=== PATIENT | female | born 1960 | race African-American/Black ===

== ENCOUNTER 2019-12-14 13:31 | Inpatient (IN) | payer SELFPAY ==
[~2019-12-14] VITALS: Ht 154.9 cm; Wt 65.8 kg
[2019-12-14] MEDS ORDERED: SODIUM CHLORIDE 0.9% 1000ML 1,000 ML IV STA (13:56)
[2019-12-14] MEDS ORDERED: ASPIRIN 81 MG CHEW TAB PO ONE ×2 (14:00→15:45)
[2019-12-14 14:33] LABS: BASOPHILS % 0.1 % (0.0-1.0); HEMOGLOBIN 13.4 g/dL (12.0-16.0); LYMPHOCYTES # (AUTO) 0.4 (1.0-3.2); LYMPHOCYTES % 3.3 % (18.0-39.1); MEAN CORPUSCULAR HEMOGLOBIN 29.1 pg (28-32); MEAN CORPUSCULAR HGB CONC 36.2 g/dL (31-35); MEAN CORPUSCULAR VOLUME 80.4 fL (81-99); MONOCYTES # (AUTO) 0.8 (0.2-0.8); NEUTROPHILS # (AUTO) 10.1 (2.1-6.9); NEUTROPHILS % 88.1 % (38.7-80.0); PLATELET COUNT 147 x10e3/uL (140-360); RED CELL DISTRIBUTION WIDTH 11.5 % (11.7-14.4)
[2019-12-14 14:43] LABS: INR 0.98; PROTHROMBIN TIME 13.6 seconds (11.9-14.5)
[2019-12-14 14:44] LABS: PARTIAL THROMBOPLASTIN TIME 24.6 seconds (23.8-35.5)
--- NOTE | 2019-12-14 14:57 | Diagnostic Imaging Report ---
EXAMINATION: CHEST SINGLE (NOT PORTABLE) INDICATION: Chest pain COMPARISON: None FINDINGS: AP view TUBES and LINES: None. LUNGS: Lungs are well inflated. Lungs are clear. There is no evidence of pneumonia or pulmonary edema. PLEURA: No pleural effusion or pneumothorax. HEART AND MEDIASTINUM: The cardiomediastinal silhouette is unremarkable. BONES AND SOFT TISSUES: No acute osseous lesion. Soft tissues are unremarkable. UPPER ABDOMEN: No free air under the diaphragm. IMPRESSION: No acute thoracic radiographic abnormality. Signed by: Gerardo Anthony MD on 12/14/2019 2:55 PM
[2019-12-14 15:05] LABS: ALANINE AMINOTRANSFERASE 115 IU/L (0-55); ALBUMIN 3.8 g/dL (3.5-5.0); ALKALINE PHOSPHATASE 43 IU/L (40-150); ANION GAP 22.8 mmol/L (8-16); BLOOD UREA NITROGEN 20 mg/dL (7-26); BUN/CREATININE RATIO 14 (6-25); CALCIUM 10.9 mg/dL (8.4-10.2); CARBON DIOXIDE 19 mmol/L (22-29); CHLORIDE 79 mmol/L (98-107); CREATININE, SERUM 1.38 mg/dL (0.57-1.11); EST GLOMERULAR FILTRATION RATE 47 ML/MIN (60-); GLUCOSE 103 mg/dL (74-118)
[2019-12-14 15:07] LABS: CREATINE KINASE 6045 IU/L (29-168); SALICYLATE < 5.0 mg/dL (0-30)
[2019-12-14 15:11] LABS: POTASSIUM 2.8 mmol/L (3.5-5.1); SODIUM 118 mmol/L (136-145)
--- NOTE | 2019-12-14 15:14 | NUR ---
Recieved call from lab for critical findings Na+: 118, K+:2.8, and CK: 6045. Results given to Dr. Grider and primary RN Sana.
[2019-12-14] MEDS ORDERED: POTASSIUM CHLORIDE 20 MEQ TAB CR PO STA (15:25)
[2019-12-14] MEDS ORDERED: KCL 20MEQ/.9 SOD CHL 1,000 ML IV ONE ×2 (15:30→18:15)
[2019-12-14] MEDS ORDERED: HEPARIN SOD (PORCINE) 5,000 UNIT/ML VIAL IV NR (17:00)
[2019-12-14] MEDS ORDERED: HEPARIN 25,000 UNIT DRIP IV ONE (17:53)
[2019-12-14] MEDS: METOPROLOL TARTRATE 25 MG TAB PO SCH (17:54)
[2019-12-14] MEDS: HEPARIN 25,000 UNIT 700 UNIT in DEXTROSE 5% 250ML 250 ML IV SCH (17:54)
[2019-12-14] MEDS ORDERED: ONDANSETRON HCL INJ 2MG/ML 2ML 2 MG/ML VIAL IV PRN (18:15)
[2019-12-14] MEDS ORDERED: NITROGLYCERIN 0.4 MG SUBL SL PRN (18:15)
--- OUTSIDE RECORDS SUMMARY | 2019-12-14 18:38 | XMS REPORT ---
Author Author [facility] Address Unknown Phone Unavailable Care Team Providers Care Commercial [employer] Associate Name Role Phone Razia WU Unavailable Unavailable Problems This patient has no known problems. Allergies, Adverse Reactions, Alerts This patient has no known allergies or adverse reactions. Medications This patient has no known medications. Encounters Start Date/Time End Date/Time Encounter Type Admission Type Attending [facility] Care Facility Care Department Encounter ID 2019-05-25 00:00:00 2019-05-25 00:00:00 Outpatient [facility] [id number] 2019-05-01 00:00:00 2019-05-01 00:00:00 Outpatient [facility] [id number] 2019-04-17 15:11:03 2019-04-17 15:11:03 Outpatient [facility] [id number] 2019-04-17 00:00:00 2019-04-17 00:00:00 Outpatient [facility] [id number] 2019-04-03 14:56:25 2019-04-03 14:56:25 Outpatient [facility] [id number] 2019-04-03 13:10:32 2019-04-03 13:10:32 Outpatient [facility] [id number] 2019-04-03 00:00:00 2019-04-03 00:00:00 Outpatient [facility] [id number] 2019-03-15 13:19:17 2019-03-15 13:19:17 Outpatient [facility] [id number] Results Test Description Test Time Test Comments Text Results Atomic Results Result Comments CHEST SINGLE (NOT PORTABLE) 2019-12-14 14:54:00 [place] [id number] Patient Name: JULIANA RASCON MR #: [id number] : 1960 Age/Sex: 59/F Req #: [id number] Adm Physician: Ordered by: LANEY MACK GRANITE SETTER Report #: [id number] Location: ER Room/Bed: Procedure: [id number] DX/CHEST SINGLE (NOT PORTABLE) Exam Date: 12/14/19 Exam Time: 1420 REPORT STATUS: Signed EXAMINATION: CHEST SINGLE (NOT PORTABLE) INDICATION: Chest pain COMPARISON: None FINDINGS: AP view TUBES and LINES: None. LUNGS: Lungs are well inflated. Lungs are clear. There is no evidence of pneumonia or pulmonary edema. PLEURA: No pleural effusion or pneumothorax. HEART AND MEDIASTINUM: The cardiomediastinal silhouette is unremarkable. BONES AND SOFT TISSUES: No acute osseous lesion. Soft tissues are unremarkable. UPPER ABDOMEN: No free air under the diaphragm. IMPRESSION: No acute thoracic radiographic abnormality. Signed by: James Desai MD on 12/14/2019 2:55 PM Dictated By: JAMES DESAI MD [id number] Transcribed By: SEGUNDO on 12/14/19 1958 COPY TO: LANEY MACK NP
[2019-12-14 19:03] LABS: ANION GAP 12.7 mmol/L (8-16); BLOOD UREA NITROGEN 19 mg/dL (7-26); BUN/CREATININE RATIO 19 (6-25); CALCIUM 10.2 mg/dL (8.4-10.2); CARBON DIOXIDE 24 mmol/L (22-29); CHLORIDE 87 mmol/L (98-107); CREATININE, SERUM 0.98 mg/dL (0.57-1.11); EST GLOMERULAR FILTRATION RATE > 60 ML/MIN (60-); GLUCOSE 82 mg/dL (74-118); POTASSIUM 3.7 mmol/L (3.5-5.1); SODIUM 120 mmol/L (136-145)
--- NOTE | 2019-12-14 19:38 | Diagnostic Imaging Report ---
EXAMINATION: Head CT without contrast. HISTORY:Altered mental status. COMPARISON:None. TECHNIQUE: Multidetector axial images were obtained from the foramen magnum to the vertex without contrast. The images were reconstructed using brain and bone algorithms. Thin section brain images were reformatted into coronal and sagittal planes. Dose modulation, iterative reconstruction, and/or weight based adjustment of the mA/kV was utilized to reduce the radiation dose to as low as reasonably achievable. Intravenous contrast: None IMAGE QUALITY: Suboptimal evaluation particularly at the level of skull base and posterior fossa structures due to streak artifacts. FINDINGS: Skull/scalp: No lytic or blastic. lesions. No surgical changes. Parenchyma: Nonspecific bilateral frontoparietal patchy white matter hypodensity are likely related to small vessel ischemic changes. Small, focal cortical-based hypodensity in the superior and dorsal aspect of right cerebellar hemisphere (image 13, series 2 and image 14, series 400) represents age indeterminate possible subacute vascular insult in right superior cerebellar artery territory. No acute hemorrhage or mass. Arteries: No density suggestive of thrombosis. Dural sinuses: No abnormal density suggestive of thrombosis. Ventricles: No hydrocephalus or displacement. Extra-axial spaces: No abnormal density. Brain volume: Normal for age. Craniocervical junction: No mass, Chiari malformation, or basilar invagination. Sella: No mass. Paranasal/mastoid sinuses: Imaged portions unremarkable. IMPRESSION: 1. Age indeterminate possible subacute vascular insult in right cerebellar hemisphere in superior cerebellar artery territory. 2. Mild supratentorial white matter microvascular ischemic changes. Signed by: Dr. Iliana Ortiz M.D. on 12/14/2019 7:36 PM
[2019-12-14] MEDS ORDERED: SODIUM CHLORIDE 0.9% 1000ML 1,000 ML IV SCH (19:45)
[2019-12-14 20:36] VITALS: BP 98/77
[2019-12-14] MEDS: ATORVASTATIN 40 MG TAB PO SCH (20:59)
[2019-12-14] MEDS: FAMOTIDINE 20 MG/2 ML VIAL IV SCH (20:59)
[2019-12-14] MEDS ORDERED: ATORVASTATIN 20 MG TAB PO SCH (21:00)
[2019-12-14 21:40] VITALS: BP 98/77
--- NOTE | 2019-12-14 22:16 | NUR ---
DR YAN CALLED AND GAVE ORDERS, BMP AT MIDNIGHT, ANOTHER BMP AT 6 AM TMRW AND CALL HER IF THE SODIUM LOWER THAN 122, ALSO CALL BMP RESULTS IN THE MORNING.
--- NOTE | 2019-12-14 22:35 | Consultation ---
DATE OF CONSULTATION: 12/14/2019 Cardiology Consultation REQUESTING PHYSICIAN: Tae Grider MD REASON FOR CONSULTATION: Elevated troponin. HISTORY OF PRESENT ILLNESS: This is a 59-year-old woman with history of hypertension, who presents with complaints of back pain. She denies any history of heart disease, but states she has been having back pain for the last couple days for which she presented to the ER. She denied any chest pain, shortness of breath, palpitations, lightheadedness, edema, orthopnea, or PND. On evaluation in the ER, she was found to have an elevated troponin for which Cardiology is consulted. Labs notable for leukocytosis of 11.48, hyponatremia of 118, hypokalemia of 2.8, elevated creatinine of 1.38 as well as elevated LFTs and cardiac biomarkers. REVIEW OF SYSTEMS: Negative except as per HPI. PAST MEDICAL HISTORY: Hypertension. PAST SURGICAL HISTORY: Denied. ALLERGIES: NO KNOWN DRUG ALLERGIES. MEDICATIONS: Please see medication list. SOCIAL HISTORY: She smokes a pack a day and has since the age of 15. She drinks a 6-pack of beer every day. No illicit drugs. FAMILY HISTORY: Denies family history of heart disease. PHYSICAL EXAMINATION: VITAL SIGNS: Temperature 98.7 degrees, pulse 87, respiratory rate 16, blood pressure 138/97, and oxygen saturation 97%. GENERAL: Well-developed, well-nourished woman, in no acute distress. HEENT: Normocephalic, atraumatic. Pupils are equal. No scleral icterus. NECK: Supple. No thyromegaly or cervical lymphadenopathy. No carotid bruits. LUNGS: Clear to auscultation bilaterally. No wheezes or crackles. CARDIOVASCULAR: Normal rate. Regular rhythm. No murmur. Normal S1, S2. ABDOMEN: Soft, nontender. EXTREMITIES: No edema. NEUROLOGIC: Nonfocal exam. SKIN: Dry and intact. LABORATORY DATA: Sodium 118, potassium 2.8, chloride 79, CO2 19, BUN 20, creatinine 1.38. AST 264, ALT 115. CK 6045, CK-MB 25.6, troponin 2.252. WBC 11.4, hemoglobin 13.4, hematocrit 37, platelets 147. EKG, sinus tachycardia, possible left atrial enlargement, septal infarct, age undetermined. IMPRESSION: 1. Elevated troponin. 2. Hyponatremia. 3. Hypokalemia. 4. Elevated liver function tests. 5. Leukocytosis. 6. Hypertension. RECOMMENDATIONS: Trend cardiac markers, agree with aspirin. We will start the patient on heparin drip. Obtain echocardiogram. Trend cardiac markers. Fasting lipid panel in a.m. Start the patient on metoprolol as well as atorvastatin. Monitor the patient on telemetry while admitted. Correct electrolyte abnormalities. Further evaluation of elevated LFTs per primary. Thank you for this consult. We will continue to follow. Nena Limon MD ABS/MODL /[id number]
[2019-12-14] MEDS ORDERED: POTASSIUM CHLORIDE 20 MEQ TAB CR PO ONE (23:00)
[2019-12-15] VITALS (9 sets, daily range): BP systolic 92–114; BP diastolic 78–94
--- NOTE | 2019-12-15 00:07 | NUR ---
DRAW BLOOD AND SENT TO LABS.
[2019-12-15 00:30] LABS: ANION GAP 17.8 mmol/L (8-16); BUN/CREATININE RATIO 34 (6-25); CALCIUM 10.3 mg/dL (8.4-10.2); CARBON DIOXIDE 17 mmol/L (22-29); CHLORIDE 91 mmol/L (98-107); CREATININE, SERUM 0.87 mg/dL (0.57-1.11); EST GLOMERULAR FILTRATION RATE > 60 ML/MIN (60-); GLUCOSE 71 mg/dL (74-118); POTASSIUM 3.8 mmol/L (3.5-5.1); SODIUM 122 mmol/L (136-145)
[2019-12-15 00:32] LABS: BLOOD UREA NITROGEN 30 mg/dL (7-26)
[2019-12-15 00:42] LABS: CREATINE KINASE MB 18.8 ng/mL (0-5.0)
--- NOTE | 2019-12-15 00:48 | NUR ---
CALLED AND SPOKE WITH DR YAN REGARDING LAB RESULT. THE MD ORDERED TO STOP THE NORMAL SALINE AND START 1/2 NS AT 70 CC/HR.
[2019-12-15] MEDS: SODIUM CHLORIDE 0.45% 1,000 ML IV SCH ×2 (00:59→16:29)
[2019-12-15] MEDS ORDERED: SODIUM CHLORIDE 0.45% 1,000 ML ONE (01:02)
--- NOTE | 2019-12-15 02:36 | NUR ---
SPOKE AND MADE DR Caden BAR AWARE, PT IS CONSULTED TO HIM.
[2019-12-15] MEDS: FAMOTIDINE 20 MG/2 ML VIAL IV SCH (06:06)
[2019-12-15 06:09] LABS: BASOPHILS % 0.2 % (0.0-1.0); EOSINOPHILS % 0.1 % (0.0-6.0); HEMATOCRIT 33.2 % (34.2-44.1); HEMOGLOBIN 11.6 g/dL (12.0-16.0); MEAN CORPUSCULAR HEMOGLOBIN 29.1 pg (28-32); MEAN CORPUSCULAR HGB CONC 34.9 g/dL (31-35); MEAN CORPUSCULAR VOLUME 83.4 fL (81-99); MONOCYTES # (AUTO) 1.2 (0.2-0.8); MONOCYTES % 11.7 % (4.4-11.3); NEUTROPHILS # (AUTO) 7.8 (2.1-6.9); NEUTROPHILS % 76.8 % (38.7-80.0); PLATELET COUNT 110 x10e3/uL (140-360); RED BLOOD COUNT 3.98 x10e6/uL (3.6-5.1); RED CELL DISTRIBUTION WIDTH 11.7 % (11.7-14.4)
--- NOTE | 2019-12-15 06:35 | NUR ---
PTT RESULT IS 49.6 THIS MORNING, INCREASED HEPARIN DRIPS BY 100 UNITS/HR. SCHEDULED NEXT PTT AT NOON.
[2019-12-15 06:59] LABS: ALANINE AMINOTRANSFERASE 106 IU/L (0-55); ALBUMIN 3.2 g/dL (3.5-5.0); ALBUMIN/GLOBULIN RATIO 1.1 (0.8-2.0); ALKALINE PHOSPHATASE 36 IU/L (40-150); ANION GAP 15.9 mmol/L (8-16); BLOOD UREA NITROGEN 28 mg/dL (7-26); BUN/CREATININE RATIO 36 (6-25); CALCIUM 9.9 mg/dL (8.4-10.2); CARBON DIOXIDE 19 mmol/L (22-29); CHLORIDE 92 mmol/L (98-107); CREATININE, SERUM 0.77 mg/dL (0.57-1.11); EST GLOMERULAR FILTRATION RATE > 60 ML/MIN (60-); POTASSIUM 3.9 mmol/L (3.5-5.1); SODIUM 123 mmol/L (136-145)
[2019-12-15 07:13] LABS: GLUCOSE 68 mg/dL (74-118)
[2019-12-15 07:20] LABS: CREATINE KINASE MB 13.1 ng/mL (0-5.0)
[2019-12-15] MEDS: ASPIRIN 325 MG TAB EC PO SCH (08:30)
[2019-12-15] MEDS: METOPROLOL TARTRATE 25 MG TAB PO SCH ×2 (08:30→16:29)
[2019-12-15] MEDS: NICOTINE 14 MG/EA PATCH TOP SCH (08:30)
--- NOTE | 2019-12-15 08:45 | NUR ---
Call placed to Dr. Simpson regarding bmp results, awaiting return call
[2019-12-15 09:16] LABS: PLATELET ESTIMATE SLIGHTLY DECREASED; PLATELET MORPHOLOGY COMMENT NORMAL; RBC MORPHOLOGY COMMENT NORMAL
[2019-12-15 09:38] LABS: CHOL/HDL RATIO 1.8 (3.0-3.6)
--- NOTE | 2019-12-15 10:35 | NUR ---
INFORMED DR BENNETT ABOUT POSSIBLE ETOH WITH DRAWL, AND THAT PATIENTS SISTER STATES "PATIENT IS SEEING AND HEARING THINGS NOT THERE". MD INFORMED AND ORDERS RECEIVED AND ENTERED
[2019-12-15] MEDS ORDERED: ONDANSETRON HCL 4 MG ORAL DISINTEGRATING TAB PO PRN (10:45)
[2019-12-15 12:34] LABS: CREATINE KINASE MB 9.3 ng/mL (0-5.0)
--- NOTE | 2019-12-15 13:20 | NUR ---
PTT 57.3, no change per heparin protocol
--- NOTE | 2019-12-15 13:22 | Diagnostic Imaging Report ---
Right upper quadrant abdominal ultrasound, 12/15/2019. History: Abnormal LFTs. Comparison: None available. Discussion: Transverse and longitudinal images of the right upper quadrant of the abdomen were obtained demonstrating a liver of normal size but diffusely increased echogenicity measuring 13 cm in length. There is no evidence of a focal hepatic mass. The portal vein is patent with hepatopetal flow and is within normal limits measuring 12 mm in diameter. The biliary tree is within normal limits with the common bile duct measuring 3 mm in diameter. The gallbladder contains small shadowing echogenic foci without evidence of wall thickening or pericholecystic fluid. The sonographic Coulter's sign was negative. The right kidney is normal in size and echogenicity without evidence of hydronephrosis, stones, or mass and measures 10.7 cm in length. The pancreatic <body and tail> are visualized and are normal in appearance. The abdominal aorta is within normal limits. There is no evidence of free fluid. IMPRESSION: 1. Diffuse fatty infiltration of the liver without focal hepatic abnormality. 2. Cholelithiasis without sonographic evidence of cholecystitis. Signed by: Michael Verma on 12/15/2019 1:20 PM
[2019-12-15] MEDS ORDERED: LORAZEPAM 1 MG TAB PO PRN (13:45)
--- NOTE | 2019-12-15 14:43 | Progress Note ---
DATE: 12/15/2019 Cardiology Progress Note SUBJECTIVE: The patient denies chest pain or shortness of breath. OBJECTIVE: VITAL SIGNS: Temperature 98.6 degrees, pulse 63, respiratory rate 14, blood pressure 110/94, and oxygen saturation 100% on room air. GENERAL: Awake, alert, no acute distress. LUNGS: Clear to auscultation bilaterally. No wheezes or crackles. CARDIOVASCULAR: Normal rate. Regular rhythm. No murmur. Normal S1 and S2. ABDOMEN: Soft, nontender. EXTREMITIES: No edema. CARDIAC MEDICATIONS: Aspirin 325 mg p.o. daily, metoprolol tartrate 25 mg p.o. b.i.d., atorvastatin 80 mg p.o. at bedtime, and heparin drip. LABORATORY DATA: WBC 10.11, hemoglobin 11.6, hematocrit 33.2, and platelets 110. Sodium 123, potassium 3.9, chloride 92, CO2 19, BUN 28, and creatinine 0.77. Troponin 1.162. Telemetry was personally reviewed, interpreted revealing sinus bradycardia. IMPRESSION: 1. Elevated troponin. 2. Hyponatremia, improving. 3. Hypokalemia, resolved. 4. Elevated LFTs. 5. Elevated CK-MB. 6. Hypertension. RECOMMENDATIONS: Troponin is downtrending. Await echocardiogram. Continue heparin drip for now. Continue aspirin. Treat rhabdomyolysis. Management of electrolyte abnormalities per Nephrology. Monitor the patient on telemetry while admitted. She will need ischemic evaluation once her metabolic abnormalities are corrected. Thank you for this consult. We will continue to follow. Nena Limon MD ABS/MODL /[id number]
[2019-12-15] MEDS: FOLIC ACID 1 MG TAB PO SCH (16:29)
--- NOTE | 2019-12-15 17:50 | Consultation ---
DATE OF CONSULTATION: 12/15/2019 Renal Consultation REASON FOR CONSULTATION: Hyponatremia, hypokalemia. HISTORY OF PRESENT ILLNESS: A 59-year-old female with a history of hypertension and alcohol abuse, presented to [facility] with back pain after she suffered a fall in a grocery store. The patient is a poor historian and history is taken from her as well as her sister is at bedside. The patient drinks at least a six-pack of beer daily and does not eat very well. According to her sister, she was walking into the grocery store and may have fallen. The patient states she laid on the ground because of the pain in her back. The patient was brought to the emergency room and was complaining of chest pain, nonradiating at that time. The patient was found to have hyponatremia, hypokalemia, was given 2 L of fluid as well as potassium supplementation and Nephrology consultation was called. The patient denies having any history of kidney disease or hyponatremia in the past. REVIEW OF SYSTEMS: A 12-point review of systems completed. All systems negative other than the HPI above. PAST MEDICAL HISTORY: Hypertension. PAST SURGICAL HISTORY: None. SOCIAL HISTORY: Positive tobacco. Positive alcohol abuse. Drinks at least 6 packs every day. No IV drugs. FAMILY HISTORY: No family history of kidney disease. ALLERGIES: NO KNOWN DRUG ALLERGIES. CURRENT MEDICATIONS: See list includes half NS at 70. PHYSICAL EXAMINATION: VITAL SIGNS: Blood pressure 114/89, pulse 74, respiratory rate 22, temperature 99.4. GENERAL: No apparent distress. HEENT: Oropharynx clear. No scleral icterus. No peripheral edema. NECK: Supple. No elevation in jugular venous pressure. No lymphadenopathy. CHEST: Clear to auscultation anteriorly bilaterally. CARDIOVASCULAR: Regular rhythm. No murmurs or rubs. ABDOMEN: Soft. Positive bowel sounds. No tenderness or rebound. EXTREMITIES: No edema. No clubbing or cyanosis. SKIN: Warm. LABORATORY DATA: Chest x-ray clear. Sodium 123, potassium 3.9, chloride 92, CO2 of 19. BUN 28, creatinine 0.77, calcium 9.9. AST, ALT elevated. Troponin 1.162, albumin 3.2. CK 4687, was 6045 on admission. Sodium was 118 at 1413 on 12/14/2019. ASSESSMENT AND PLAN: 1. Hyponatremia, suspect secondary to beer potomania. We will check urine studies and raise sodium no faster than 0.25 millimoles/liter/hour as the patient does have history of alcohol abuse and is at risk of pontine myelinolysis. 2. Hypokalemia, replaced. 3. Hypercalcemia due to volume depletion, improved with hydration. 4. Rhabdomyolysis. Continue with IV fluids at a rate to not correct the sodium too quickly. 5. Elevated troponins per Cardiology. MD JACQUELIN Milan/MAGDA /[id number]
[2019-12-15] MEDS: HEPARIN 25,000 UNIT 700 UNIT in DEXTROSE 5% 250ML 250 ML IV SCH (17:56)
--- NOTE | 2019-12-15 18:05 | NUR ---
PATIENT CONFUSED AND DISORIENTED, ATTEMPTED TO GET OUT OF BED UNASSISTED, PATIENT WAS REDIRECTED AND BED ALARM SET, WILL CONTINUE TO MONITOR
[2019-12-15] MEDS: ATORVASTATIN 40 MG TAB PO SCH (20:36)
[2019-12-15] MEDS: FAMOTIDINE 20 MG TAB PO SCH (20:36)
[2019-12-16] VITALS (11 sets, daily range): BP systolic 84–128; BP diastolic 63–104
[2019-12-16] MEDS: SODIUM CHLORIDE 0.45% 1,000 ML IV SCH ×2 (04:28→18:12)
[2019-12-16 05:18] LABS: BASOPHILS % 0.3 % (0.0-1.0); EOSINOPHILS % 0.6 % (0.0-6.0); HEMATOCRIT 30.6 % (34.2-44.1); HEMOGLOBIN 10.3 g/dL (12.0-16.0); LYMPHOCYTES # (AUTO) 1.2 (1.0-3.2); LYMPHOCYTES % 17.4 % (18.0-39.1); MEAN CORPUSCULAR HEMOGLOBIN 28.9 pg (28-32); MEAN CORPUSCULAR HGB CONC 33.7 g/dL (31-35); MEAN CORPUSCULAR VOLUME 85.7 fL (81-99); MONOCYTES # (AUTO) 0.9 (0.2-0.8); MONOCYTES % 12.9 % (4.4-11.3); NEUTROPHILS # (AUTO) 4.5 (2.1-6.9); NEUTROPHILS % 68.1 % (38.7-80.0); PLATELET COUNT 121 x10e3/uL (140-360); RED BLOOD COUNT 3.57 x10e6/uL (3.6-5.1); RED CELL DISTRIBUTION WIDTH 12.1 % (11.7-14.4)
[2019-12-16 05:49] LABS: ALANINE AMINOTRANSFERASE 94 IU/L (0-55); ALKALINE PHOSPHATASE 38 IU/L (40-150); ANION GAP 14.6 mmol/L (8-16); BLOOD UREA NITROGEN 19 mg/dL (7-26); BUN/CREATININE RATIO 28 (6-25); CALCIUM 10.5 mg/dL (8.4-10.2); CARBON DIOXIDE 20 mmol/L (22-29); CHLORIDE 97 mmol/L (98-107); CREATININE, SERUM 0.68 mg/dL (0.57-1.11); EST GLOMERULAR FILTRATION RATE > 60 ML/MIN (60-); GLUCOSE 76 mg/dL (74-118); POTASSIUM 3.6 mmol/L (3.5-5.1); SODIUM 128 mmol/L (136-145)
[2019-12-16 06:12] LABS: ANION GAP 12.6 mmol/L (8-16); BLOOD UREA NITROGEN 19 mg/dL (7-26); BUN/CREATININE RATIO 28 (6-25); CALCIUM 10.5 mg/dL (8.4-10.2); CARBON DIOXIDE 21 mmol/L (22-29); CHLORIDE 97 mmol/L (98-107); CREATININE, SERUM 0.67 mg/dL (0.57-1.11); EST GLOMERULAR FILTRATION RATE > 60 ML/MIN (60-); GLUCOSE 75 mg/dL (74-118); MAGNESIUM 1.8 MG/DL (1.3-2.1); POTASSIUM 3.6 mmol/L (3.5-5.1); SODIUM 127 mmol/L (136-145)
--- NOTE | 2019-12-16 06:19 | NUR ---
PATIENT'S SODIUM CAME BACK AT 128, ORDER ON CHART SAYS TO CALL DR AND NOTIFY IF OVER 126. DR MOLINA STATES TO LEAVE FLUIDS RUNNING IS WITH A REPEAT SODIUM DRAW AT 4PM AND CALL WITH RESULTS.
[2019-12-16] MEDS: MORPHINE SULFATE 2 MG/ML SYR 1ML IV PRN ×2 (07:50→19:37)
[2019-12-16] MEDS: FOLIC ACID 1 MG TAB PO SCH (08:05)
[2019-12-16] MEDS: NICOTINE 14 MG/EA PATCH TOP SCH (08:05)
[2019-12-16] MEDS: ASPIRIN 325 MG TAB EC PO SCH (08:05)
[2019-12-16] MEDS: FAMOTIDINE 20 MG TAB PO SCH ×2 (08:05→21:45)
[2019-12-16] MEDS: METOPROLOL TARTRATE 25 MG TAB PO SCH ×2 (08:06→17:00)
[2019-12-16] MEDS ORDERED: LORAZEPAM INJ 2 MG/ML VIAL IV ONE (11:00)
[2019-12-16] MEDS: CHLORDIAZEPOXIDE HCL 25 MG CAP PO SCH ×2 (11:23→17:54)
--- NOTE | 2019-12-16 11:32 | Progress Note ---
DATE: 12/16/2019 CHIEF COMPLAINT/HISTORY OF PRESENT ILLNESS: This is a 59-year-old woman, whose primary treating diagnosis is nnx-CM-vbtbqrqv myocardial infarction and rhabdomyolysis. She also has underlying history of chronic alcoholism and fatty liver disease. The patient was also diagnosed with beer potomania on admission. Currently, she is exhibiting signs and symptoms consistent with acute alcohol withdrawal. Blood work today revealed sodium 127, potassium 3.6, BUN and creatinine 19 and 0.67 respectively. Today's, AST and ALT were 164 and 94 respectively. Yesterday, on December 15, 2019, troponin I was 0.794. Her troponin I did get as high as 2.252. She is currently chest pain-free. Echocardiogram performed on admission revealed a preserved left ventricular ejection fraction of 55% to 60%, but did reveal findings consistent with diastolic heart failure. REVIEW OF SYSTEMS: As per HPI. PHYSICAL EXAMINATION: GENERAL: She is awake. She is alert. She is oriented to herself only. She is very much confused. VITAL SIGNS: Blood pressure 108/66, pulse 56, respiratory rate 18, temperature 98.7, and oxygen saturation 100% on room air. Height 5 feet 1 inch, weighs 145 pounds, BMI 27. INTEGUMENT: Skin is warm and dry. No pallor, jaundice, or diaphoresis. HEENT: Anicteric sclerae. Moist mucous membranes. NECK: Supple. CARDIOVASCULAR: Distant heart sounds. Regular rate and rhythm with an S3 gallop. LUNGS: No rales. No rhonchi or wheezes. ABDOMEN: Benign. EXTREMITIES: No edema or deformity. NEUROLOGIC: Intact. No gross deficits. DIAGNOSES: 1. Kgi-PJ-uunohycy myocardial infarction. 2. Alcoholic liver cirrhosis, likely. 3. Fatty liver disease. 4. Rhabdomyolysis, resolving. 5. Chronic diastolic congestive heart failure. 6. Beer potomania. 7. Tobacco abuse. 8. Acute alcohol withdrawal. PLAN: 1. We will start scheduled oral Librium to offset acute alcohol withdrawal symptoms. 2. We will start thiamin intravenously because of her chronic alcoholism. 3. We will follow troponin I levels. 4. We will follow creatine kinase level since she has rhabdomyolysis. 5. We will likely stop intravenous heparin. 6. We will continue oral potassium. 7. Continue beta-garret and statin therapy since she had a mxs-HG-rfbpelfn myocardial infarction. 8. We will start regular diet. 9. Follow electrolytes. 10. Regular diet. I spent 40 minutes in the care of this patient. MD MARTHA Contreras/MAGDA /[id number] MTDDusty
[2019-12-16 11:52] LABS: AMPHETAMINES SCREEN,URINE NEGATIVE (NEGATIVE); BENZODIAZEPINES SCREEN,URINE POSITIVE (NEGATIVE); CLARITY,URINE CLEAR (CLEAR); COLOR,URINE YELLOW (YELLOW); KETONES,URINE NEGATIVE (NEGATIVE); LEUKOCYTE ESTERASE ,URINE NEGATIVE (NEGATIVE); NITRITE,URINE NEGATIVE (NEGATIVE); PHENCYCLIDINE SCREEN,URINE NEGATIVE (NEGATIVE); PROTEIN,URINE DIPSTICK NEGATIVE (NEGATIVE)
[2019-12-16] MEDS: THIAMINE HCL INJ 100 MG/ML 2ML VIAL IV SCH (11:52)
[2019-12-16 11:53] LABS: BILIRUBIN,URINE NEGATIVE (NEGATIVE); URINE UROBILINOGEN 1 mg/dL (0.2 - 1)
[2019-12-16 12:10] LABS: BACTERIA,URINE FEW /HPF; EPITHELIAL CELLS,URINE FEW /LPF; RBC,URINE 0-5 /HPF (0-5); WBC,URINE (MAN) 0-5 /HPF (0-5)
[2019-12-16 14:19] LABS: BLOOD UREA NITROGEN 17 mg/dL (7-26); BUN/CREATININE RATIO 27 (6-25); CALCIUM 10.5 mg/dL (8.4-10.2); CARBON DIOXIDE 22 mmol/L (22-29); CHLORIDE 99 mmol/L (98-107); CREATINE KINASE 1936 IU/L (29-168); CREATININE, SERUM 0.62 mg/dL (0.57-1.11); EST GLOMERULAR FILTRATION RATE > 60 ML/MIN (60-); GLUCOSE 72 mg/dL (74-118); SODIUM 129 mmol/L (136-145)
--- NOTE | 2019-12-16 18:15 | NUR ---
pt has been confused and hallucinating throughout shift. MD rounded and aware. orders were recvd. pt continues to be confused but calm at this time.
[2019-12-16] MEDS ORDERED: POTASSIUM CHLORIDE 20 MEQ TAB CR PO STA (18:23)
[2019-12-16] MEDS ORDERED: SODIUM CHLORIDE 0.9% 1000ML 1,000 ML IV SCH (18:30)
--- NOTE | 2019-12-16 19:00 | NUR ---
PATIENT DURING REPORT IS AGITATED, TRYING TO GET OUT OF BED, NOT FOLLOWING COMMANDS, MD MORSE PAGED BY DAY NURSE AT THIS TIME.
--- NOTE | 2019-12-16 20:50 | NUR ---
PATIENT TRYING TO GET OUT OF BED, NOT FOLLOWING COMMAND, BED ALARM ON, HOWEVER, PATIENT IS VERY QUICK, PATIENT AT FALL RISK, CHARGE NURSE MADE AWARE AND PIPE TESTING TECHNICIAN MADE AWARE.
[2019-12-16] MEDS ORDERED: ZIPRASIDONE 20 MG VIAL IM STA (20:56)
[2019-12-16] MEDS ORDERED: ZIPRASIDONE 20 MG VIAL IM PRN (21:00)
[2019-12-16] MEDS ORDERED: LORAZEPAM INJ 2 MG/ML VIAL IV PRN (21:00)
[2019-12-16] MEDS: ATORVASTATIN 40 MG TAB PO SCH (21:45)
--- NOTE | 2019-12-16 21:45 | NUR ---
Dr. Dasilva called back, orders were received and patient now has a sitter.
[2019-12-17] VITALS (8 sets, daily range): BP systolic 94–116; BP diastolic 76–94
[2019-12-17] MEDS: CHLORDIAZEPOXIDE HCL 25 MG CAP PO SCH ×4 (00:49→17:16)
[2019-12-17 05:41] LABS: BASOPHILS % 0.8 % (0.0-1.0); EOSINOPHILS # (AUTO) 0.1 (0.0-0.4); EOSINOPHILS % 1.9 % (0.0-6.0); HEMATOCRIT 32.6 % (34.2-44.1); LYMPHOCYTES # (AUTO) 0.9 (1.0-3.2); LYMPHOCYTES % 24.4 % (18.0-39.1); MEAN CORPUSCULAR HEMOGLOBIN 29.3 pg (28-32); MEAN CORPUSCULAR HGB CONC 33.7 g/dL (31-35); MEAN CORPUSCULAR VOLUME 86.7 fL (81-99); MONOCYTES # (AUTO) 0.5 (0.2-0.8); MONOCYTES % 14.4 % (4.4-11.3); NEUTROPHILS # (AUTO) 2.1 (2.1-6.9); NEUTROPHILS % 57.1 % (38.7-80.0); PLATELET COUNT 136 x10e3/uL (140-360); RED BLOOD COUNT 3.76 x10e6/uL (3.6-5.1); RED CELL DISTRIBUTION WIDTH 12.5 % (11.7-14.4)
[2019-12-17 06:05] LABS: ALANINE AMINOTRANSFERASE 106 IU/L (0-55); ALBUMIN 3.3 g/dL (3.5-5.0); ALKALINE PHOSPHATASE 43 IU/L (40-150); ANION GAP 11.2 mmol/L (8-16); BLOOD UREA NITROGEN 14 mg/dL (7-26); BUN/CREATININE RATIO 21 (6-25); CALCIUM 11.1 mg/dL (8.4-10.2); CARBON DIOXIDE 25 mmol/L (22-29); CHLORIDE 103 mmol/L (98-107); CREATININE, SERUM 0.67 mg/dL (0.57-1.11); EST GLOMERULAR FILTRATION RATE > 60 ML/MIN (60-); GLUCOSE 66 mg/dL (74-118); POTASSIUM 3.2 mmol/L (3.5-5.1); SODIUM 136 mmol/L (136-145)
[2019-12-17 06:14] LABS: CREATINE KINASE MB 2.6 ng/mL (0-5.0)
[2019-12-17] MEDS: SODIUM CHLORIDE 0.45% 1,000 ML IV SCH (08:45)
[2019-12-17] MEDS: FAMOTIDINE 20 MG TAB PO SCH ×2 (08:46→21:00)
[2019-12-17] MEDS: FOLIC ACID 1 MG TAB PO SCH (08:46)
[2019-12-17] MEDS: ASPIRIN 325 MG TAB EC PO SCH (08:46)
[2019-12-17] MEDS: NICOTINE 14 MG/EA PATCH TOP SCH (08:46)
[2019-12-17] MEDS: THIAMINE HCL INJ 100 MG/ML 2ML VIAL IV SCH (08:46)
[2019-12-17] MEDS: METOPROLOL TARTRATE 25 MG TAB PO SCH ×2 (08:50→17:00)
[2019-12-17] MEDS ORDERED: POTASSIUM CHLORIDE 20 MEQ TAB CR PO ONE ×3 (09:00→12:00)
--- NOTE | 2019-12-17 11:40 | Progress Note ---
DATE: 12/17/2019 CHIEF COMPLAINT/HISTORY OF PRESENT ILLNESS: This is a 59-year-old woman whose primary treating diagnosis is non-ST elevated myocardial infarction and rhabdomyolysis. She was also diagnosed with beer potomania by Nephrology. Moreover, she is experiencing acute alcohol withdrawal symptoms. She seems to be more calm now that she is taking oral Librium on a scheduled basis. Echocardiogram done during this hospitalization also revealed findings consistent with preserved ejection fraction, but it did reveal diastolic heart failure. The patient's rhabdomyolysis also seems to be improving. The patient's creatine kinase level today is 1606. The patient's troponin I today is 0.159. The patient's potassium today is 3.2. The patient's BUN and creatinine are 14 and 0.67 respectively. The patient's AST and ALT are 157 and 106 respectively. The patient's sodium today is 136. Ammonia level today is 47. REVIEW OF SYSTEMS: As per HPI. PHYSICAL EXAMINATION: GENERAL: She is awake. She is slightly more alert. She still gets confused easily. She is pleasant and cooperative to exam. There is a sitter at bedside. VITAL SIGNS: Blood pressure is 94/76, pulse 86, respiratory rate is 16, oxygen saturation 96% on room air, temperature 99.2, and BMI is 27. INTEGUMENT: Skin is warm and dry. No pallor, jaundice, or diaphoresis. HEENT: Anterior sclerae with moist mucous membranes. NECK: Supple. CARDIOVASCULAR: Distant heart sounds. Regular rate and rhythm with an S3 gallop. LUNGS: No rales, no rhonchi or wheezes. ABDOMEN: Benign. EXTREMITIES: No deformity. NEUROLOGIC: Intact. No gross focal deficits appreciated. ASSESSMENT: 1. Non-ST elevated myocardial infarction, resolving. 2. Alcoholic liver cirrhosis, likely. 3. Chronic alcoholism. 4. Acute alcohol withdrawal, resolving. 5. Fatty liver disease. 6. Rhabdomyolysis, resolving. 7. Chronic diastolic congestive heart failure. 8. Beer potomania, resolving. 9. Tobacco abuse. PLAN: 1. Order chest x-ray. 2. Continue scheduled oral Librium to offset the patient's acute alcohol withdrawal symptoms. 3. Continue intravenous thiamine since the patient has history of chronic alcoholism. 4. Follow creatine kinase level since the patient has rhabdomyolysis. 5. Replete potassium level. 6. Continue beta garret and statin therapy since she had a non-ST elevated myocardial infarction. 7. Follow liver enzymes. 8. We will mobilize physical therapy. I spent 30 minutes in the care of this patient. MD MARTHA Contreras/MAGDA /[id number] CHEYANNE
--- NOTE | 2019-12-17 11:53 | NUR ---
Received home health order. Went to speak with pt, but she is confused and has 1:1 sitter. Discussed with Nava WEST, pt nurse. CM to follow up on pt dc needs.
[2019-12-17] MEDS ORDERED: POTASSIUM CHLORIDE 10MEQ EA PO ONE (12:00)
--- NOTE | 2019-12-17 13:26 | Progress Note ---
DATE: 12/16/2019 Cardiology Progress Note SUBJECTIVE: The patient is confused, appears to be in alcohol withdrawal, getting treated with Ativan, currently sleeping. OBJECTIVE: VITAL SIGNS: Temperature afebrile, pulse 54, respiratory rate 20, blood pressure 103/74, saturating 98% on room air. GENERAL: Middle-aged female, appears older than her stated age, currently sleeping. CARDIOVASCULAR: Regular rate and rhythm. No murmurs, rubs, or gallops. LUNGS: Clear to auscultation anteriorly. ABDOMEN: Soft, nontender, nondistended. NEURO AND PSYCH: Sleepy, arousable. INPATIENT MEDICATIONS: Reviewed. LABORATORY DATA: Reviewed. TELEMETRY DATA: Reviewed, shows normal sinus rhythm. ASSESSMENT: 1. Tzs-DF-srnrgtkky myocardial infarction. 2. Chronic alcoholism. 3. Hyponatremia. 4. Hypokalemia. 5. Abnormal liver function tests. 6. Alcohol withdrawal. RECOMMENDATIONS: Continue aspirin. No statin given. Abnormal LFTs. The patient's troponin is now downtrending and is chest pain-free. High risk for bleeding, given her likely cirrhosis. We will stop IV heparin today. Echocardiogram is also pending. Given her chronic alcoholism, poor medical compliance she is not a good candidate for invasive management. Recommend medical therapy only. If ejection fraction is low we will consider stress test. Add Plavix if tolerated from bleeding standpoint. Thank you for this consult. We will continue to follow. MD EVA Maguire/MODL /[id number]
--- NOTE | 2019-12-17 13:46 | Progress Note ---
DATE: 12/17/2019 Cardiology Progress Note SUBJECTIVE: No major events overnight. Remains confused, but awake today. Denies any chest pain or shortness of breath. OBJECTIVE: VITAL SIGNS: Temperature afebrile, pulse 68, respiratory rate 20, blood pressure 106/74. GENERAL: No acute distress. CARDIOVASCULAR: Regular rate and rhythm. No murmurs, rubs, or gallops. LUNGS: Clear to auscultation anteriorly. ABDOMEN: Soft, nontender and nondistended. NEURO AND PSYCH: Disoriented. INPATIENT MEDICATIONS: Reviewed. LABORATORY DATA: Reviewed. TELEMETRY DATA: Reviewed. Shows normal sinus rhythm. IMAGING DATA: Reviewed. Abdominal ultrasound. ASSESSMENT: 1. Rsx-XT-enmiukpxt myocardial infarction. 2. Alcohol withdrawal. 3. Altered mental status. PLAN: Continue aspirin and beta-blockers. Once patient recovers from alcohol withdrawals we will reassess if she would be a good candidate for stress test for ischemic evaluation. Not a good candidate for cardiac catheterization at this time. No overt bleeding, so we will start Plavix, atorvastatin was stopped due to abnormal liver function test. Thank you for this consult. We will continue to follow. MD EVA Maguire/MAGDA /[id number]
--- NOTE | 2019-12-17 14:13 | Diagnostic Imaging Report ---
EXAMINATION: CHEST SINGLE (PORTABLE) INDICATION: Recent AK. COMPARISON: Chest radiograph 12/14/2019. FINDINGS: TUBES and LINES: None. LUNGS: Lungs are well inflated. There is no evidence of pneumonia or pulmonary edema. PLEURA: No pleural effusion or pneumothorax. HEART AND MEDIASTINUM: The cardiomediastinal silhouette is unremarkable. BONES AND SOFT TISSUES: No acute osseous abnormality. Dense lesion in the proximal humeral metadiaphysis may represent a fibro-osseous lesion such as nonossifying fibroma. No evidence of periosteal reaction or bony destructive changes. UPPER ABDOMEN: No free air under the diaphragm. IMPRESSION: No acute thoracic abnormality. Signed by: Dr. Brett Granger MD on 12/17/2019 2:10 PM
--- NOTE | 2019-12-17 19:00 | NUR ---
Received report from oncoming nurse. Pt in bed with eyes open, laying in prone position. Resp even and unlabored. No SOB/resp. distress noted. sitter at side. Call light in reach. bed in locked and low position.
[2019-12-18] MEDS: CHLORDIAZEPOXIDE HCL 25 MG CAP PO SCH ×5 (00:01→23:48)
[2019-12-18] MEDS: SODIUM CHLORIDE 0.45% 1,000 ML IV SCH ×3 (00:01→23:49)
--- NOTE | 2019-12-18 05:04 | NUR ---
IV to right upper forearm discontinued d/t infiltration. IV catheter tip intact. pressure and dressing appplied. New IV to right AC started using a 22g. site wrapped with kerlix. Will cont to monitor.
[2019-12-18 05:48] VITALS: BP 129/96
[2019-12-18 06:50] LABS: BASOPHILS % 0.5 % (0.0-1.0); EOSINOPHILS # (AUTO) 0.1 (0.0-0.4); EOSINOPHILS % 1.7 % (0.0-6.0); HEMATOCRIT 30.9 % (34.2-44.1); HEMOGLOBIN 9.8 g/dL (12.0-16.0); LYMPHOCYTES # (AUTO) 0.9 (1.0-3.2); LYMPHOCYTES % 13.8 % (18.0-39.1); MEAN CORPUSCULAR HEMOGLOBIN 28.7 pg (28-32); MEAN CORPUSCULAR HGB CONC 31.7 g/dL (31-35); MEAN CORPUSCULAR VOLUME 90.4 fL (81-99); MONOCYTES # (AUTO) 0.9 (0.2-0.8); MONOCYTES % 14.9 % (4.4-11.3); NEUTROPHILS # (AUTO) 4.3 (2.1-6.9); NEUTROPHILS % 67.7 % (38.7-80.0); PLATELET COUNT 156 x10e3/uL (140-360); RED BLOOD COUNT 3.42 x10e6/uL (3.6-5.1); RED CELL DISTRIBUTION WIDTH 12.8 % (11.7-14.4)
[2019-12-18 07:20] LABS: ALANINE AMINOTRANSFERASE 112 IU/L (0-55); ALBUMIN 3.1 g/dL (3.5-5.0); ALBUMIN/GLOBULIN RATIO 0.9 (0.8-2.0); ALKALINE PHOSPHATASE 43 IU/L (40-150); ANION GAP 10.6 mmol/L (8-16); BLOOD UREA NITROGEN 12 mg/dL (7-26); BUN/CREATININE RATIO 17 (6-25); CALCIUM 10.4 mg/dL (8.4-10.2); CARBON DIOXIDE 21 mmol/L (22-29); CHLORIDE 107 mmol/L (98-107); CREATININE, SERUM 0.69 mg/dL (0.57-1.11); EST GLOMERULAR FILTRATION RATE > 60 ML/MIN (60-); GLUCOSE 72 mg/dL (74-118); POTASSIUM 3.6 mmol/L (3.5-5.1); SODIUM 135 mmol/L (136-145)
--- NOTE | 2019-12-18 07:49 | NUR ---
PT AMBULATED TO RESTROOM WITH ASSISTANCE, HAD LARGE, WATERY, BLACK-COLORED BOWEL MOVEMENT. LAYING IN BED, BREAKFAST TRAY ARRIVED. WILL CONTINUE TO MONITOR.
[2019-12-18 08:06] VITALS: BP 103/90
--- NOTE | 2019-12-18 08:30 | NUR ---
PT IS SELF PAY, LEFT PACKET OF INFORMATION WITH [facility] [employer] FOR ASSISTANCE WITH LOW TO NO INCOME TO PATIENT. RESOURCES THAT PATIENT MAY BE ABLE TO FOLLOW UP UPON DISCHARGE. PT EDUCATED ON EACH RESOURCE AND UNDERSTANDING HOW TO FOLLOW UP TO SEE IF QUALIFIED FOR EACH RESOURCE.
--- NOTE | 2019-12-18 09:05 | NUR ---
DR BENNETT ARRIVED AT BEDSIDE. STATES PT IS TOO SLEEPY AND WANTS TO WITHHOLD LIBRIUM DOSE THIS AM UNTIL PT WAKES UP MORE.
[2019-12-18] MEDS: THIAMINE HCL INJ 100 MG/ML 2ML VIAL IV SCH (11:25)
--- NOTE | 2019-12-18 11:26 | Progress Note ---
DATE: 12/18/2019 SUBJECTIVE: Ms. Yip is a 59-year-old female with history of tobacco use, alcohol abuse, liver cirrhosis, hypertension, came to the emergency room because her back was hurting and she was found to have acute alcohol withdrawal seen. She was started on Librium. CPK was very elevated secondary to rhabdomyolysis. Troponin was elevated due to non-ST elevated ND, so the patient was admitted to the hospital. PHYSICAL EXAMINATION: GENERAL: Today, she is sleepy. She is arousable. She follows commands. VITAL SIGNS: Temperature 96.7, blood pressure 103/90. HEART: Regular rate. LUNGS: Poor inspiratory effort. ABDOMEN: Distended and soft. LABORATORY DATA: On the blood work, white count is 6.30, hemoglobin is 9.8, hematocrit 30.9, and potassium 3.6. Creatinine is 0.69. Liver enzymes elevated. PTH is pending. Troponin went back down. Toxicology came positive for opioids and benzodiazepine. Hepatitis profile is negative. Urine culture, no growth. IMAGING: Chest x-ray done yesterday shows no acute thoracic abnormalities. Abdominal ultrasound shows diffuse fatty liver, cholelithiasis with no cholecystitis. ASSESSMENT AND PLAN: 1. Non-ST elevated myocardial infarction. 2. Alcoholic liver cirrhosis. 3. EtOH abuse. 4. Acute alcohol withdrawal. 5. Fatty liver disease. 6. Rhabdomyolysis. 7. Chronic diastolic congestive heart failure. 8. Beer potomania. 9. Tobacco abuse. 10. Hypertension. PLAN: Plan at present time is to continue on Librium. Continue to monitor mental status. Continue beta-garret, aspirin and Plavix. Statins and atorvastatin were stopped due to elevated liver enzymes. Needs to start PT and OT. I spent more than 30 minutes examining patient, reviewing overnight event lab results and trying to discuss the plan of care with her. MD GERALD Bhandari/MAGDA /[id number]
[2019-12-18] MEDS: FOLIC ACID 1 MG TAB PO SCH (11:30)
[2019-12-18] MEDS: ASPIRIN 325 MG TAB EC PO SCH (11:30)
[2019-12-18] MEDS: METOPROLOL TARTRATE 25 MG TAB PO SCH ×2 (11:32→16:29)
[2019-12-18] MEDS: CLOPIDOGREL BISULFATE 75 MG TAB PO SCH (11:32)
[2019-12-18] MEDS: FAMOTIDINE 20 MG TAB PO SCH ×2 (11:32→21:22)
[2019-12-18] MEDS: NICOTINE 14 MG/EA PATCH TOP SCH (11:33)
[2019-12-18 12:25] VITALS: BP 102/78
[2019-12-18 16:53] VITALS: BP 95/71
--- NOTE | 2019-12-18 17:47 | NUR ---
pt going to room 203; report given to BRETT Barkley.
--- NOTE | 2019-12-18 18:10 | NUR ---
patient arrived to room 203.
[2019-12-18 20:00] VITALS: BP 95/70
--- NOTE | 2019-12-18 20:18 | Progress Note ---
DATE: 12/18/2019 Cardiology Progress Note SUBJECTIVE: The patient denies chest pain or shortness of breath. The patient's son was at bedside today. He indicates that patient lives with him and is normally very active. He reports she still is not herself at this time. OBJECTIVE: VITAL SIGNS: Temperature 96.3 degrees, pulse 59, respiratory rate 16, blood pressure 95/71, oxygen 100%. GENERAL: Awake, alert, no acute distress. LUNGS: Clear to auscultation bilaterally. No wheezes or crackles. CARDIOVASCULAR: Normal rate, regular rhythm. No murmur. Normal S1, S2. ABDOMEN: Soft, nontender. EXTREMITIES: No edema. CARDIAC MEDICATIONS: Plavix 75 mg p.o. daily, aspirin 81 mg p.o. daily, metoprolol tartrate 25 mg p.o. b.i.d. LABORATORY DATA: WBC 6.3, hemoglobin 9.8, hematocrit 30.9, platelets 156. Sodium 135, potassium 3.6, chloride 107, CO2 of 21, BUN 12, creatinine 0.69. TELEMETRY: Personally reviewed and interpreted revealing normal sinus rhythm. IMPRESSION: 1. Qjs-LJ-cvmknfevb myocardial infarction. 2. Alcohol withdrawal. 3. Altered mental status. 4. Hyponatremia. 5. Elevated LFTs. 6. Hypertension. RECOMMENDATIONS: Continue current cardiac medications including dual antiplatelet therapy and beta-garret, not on atorvastatin at this time due to elevated CK and elevated LFTs. The patient will need ischemic evaluation given her dee-TP-qgmyuqbtl myocardial infarction. However, await improvement of altered mental status and recover from alcohol withdrawal, determine if she is a candidate for cardiac catheterization. Continue medical therapy for now. Thank you for this consult. We will continue to follow. Nena Limon MD ABS/MODL /[id number]
[2019-12-18 21:15] VITALS: BP 95/70
--- NOTE | 2019-12-18 21:15 | NUR ---
PATIENT IN STABLE CONDITION, NO SIGNS OF DISTRESS NOTED. PATIENT IS WEAK UPON AMBULATION TO RESTROOM WITH WALKER AND VOICES NO PAIN AT THIS TIME. IV FLUIDS ARE RUNNING AT ORDERED RATE AND PATIENT RESTING COMFORTABLY. BED IS IN LOWEST POSITION, BOTH SIDE RAILS ARE UP, BED ALARM IS ON, CALL LIGHT IS WITHIN EASY REACH WILL CONTINUE TO MONITOR.
[2019-12-19] VITALS (8 sets, daily range): BP systolic 91–103; BP diastolic 60–78
[2019-12-19 05:19] LABS: BASOPHILS % 0.5 % (0.0-1.0); EOSINOPHILS # (AUTO) 0.1 (0.0-0.4); EOSINOPHILS % 2.3 % (0.0-6.0); HEMATOCRIT 27.5 % (34.2-44.1); HEMOGLOBIN 9.1 g/dL (12.0-16.0); LYMPHOCYTES # (AUTO) 1.5 (1.0-3.2); MEAN CORPUSCULAR HEMOGLOBIN 29.1 pg (28-32); MEAN CORPUSCULAR HGB CONC 33.1 g/dL (31-35); MEAN CORPUSCULAR VOLUME 87.9 fL (81-99); MONOCYTES # (AUTO) 0.9 (0.2-0.8); MONOCYTES % 15.8 % (4.4-11.3); NEUTROPHILS # (AUTO) 2.9 (2.1-6.9); PLATELET COUNT 158 x10e3/uL (140-360); RED BLOOD COUNT 3.13 x10e6/uL (3.6-5.1)
[2019-12-19 05:49] LABS: ANION GAP 10.1 mmol/L (8-16); BLOOD UREA NITROGEN 12 mg/dL (7-26); BUN/CREATININE RATIO 18 (6-25); CALCIUM 9.8 mg/dL (8.4-10.2); CARBON DIOXIDE 21 mmol/L (22-29); CHLORIDE 106 mmol/L (98-107); CREATININE, SERUM 0.65 mg/dL (0.57-1.11); EST GLOMERULAR FILTRATION RATE > 60 ML/MIN (60-); GLUCOSE 104 mg/dL (74-118); POTASSIUM 3.1 mmol/L (3.5-5.1); SODIUM 134 mmol/L (136-145)
[2019-12-19] MEDS: CHLORDIAZEPOXIDE HCL 25 MG CAP PO SCH ×2 (06:21→17:47)
[2019-12-19] MEDS: METOPROLOL TARTRATE 25 MG TAB PO SCH ×2 (09:00→17:00)
--- NOTE | 2019-12-19 09:00 | NUR ---
Patient much more alert and awake today. assisted patient with morning meds and she is now sitting up in recliner. patient wishes to shower later today. WCTM.
[2019-12-19] MEDS: NICOTINE 14 MG/EA PATCH TOP SCH (09:27)
[2019-12-19] MEDS: FOLIC ACID 1 MG TAB PO SCH (09:27)
[2019-12-19] MEDS: FAMOTIDINE 20 MG TAB PO SCH ×2 (09:27→21:21)
[2019-12-19] MEDS: CLOPIDOGREL BISULFATE 75 MG TAB PO SCH (09:27)
[2019-12-19] MEDS: ASPIRIN 325 MG TAB EC PO SCH (09:27)
[2019-12-19] MEDS: THIAMINE HCL INJ 100 MG/ML 2ML VIAL IV SCH (09:27)
--- NOTE | 2019-12-19 09:30 | NUR ---
morning dose of metoprolol held due to hypotension. Dr. Limon aware.
[2019-12-19] MEDS ORDERED: POTASSIUM CHLORIDE 20 MEQ TAB CR PO SCH ×2 (10:45→12:30)
[2019-12-19] MEDS ORDERED: POTASSIUM CHLORIDE 20 MEQ TAB CR PO NR (10:45)
--- NOTE | 2019-12-19 12:21 | Progress Note ---
DATE: 12/19/2019 Cardiology Progress Note SUBJECTIVE: The patient denies chest pain or shortness of breath. OBJECTIVE: VITAL SIGNS: Temperature 97.4 degrees, pulse 63, respiratory rate 16, blood pressure 97/60, and oxygen saturation 96% on room air. GENERAL: Awake, alert, in no acute distress. LUNGS: Clear to auscultation bilaterally. No wheezes or crackles. CARDIOVASCULAR: Normal rate. Regular rhythm. No murmur. Normal S1 and S2. ABDOMEN: Soft and nontender. EXTREMITIES: No edema. CARDIAC MEDICATIONS: Plavix 75 mg p.o. daily, aspirin 81 mg p.o. daily, and metoprolol tartrate 25 mg p.o. b.i.d. LABORATORY DATA: WBC 5.69, hemoglobin 9.1, hematocrit 27.5, and platelets 158. Sodium 134, potassium 3.1, chloride 106, CO2 21, BUN 12, and creatinine 0.65. Telemetry was personally reviewed and interpreted, revealing normal sinus rhythm. IMPRESSION: 1. Tuy-ZK-znnzjhcdh myocardial infarction. 2. Alcohol withdrawal. 3. Altered mental status. 4. Elevated LFTs. 5. Hypertension, currently hypotensive. 6. Hyponatremia. RECOMMENDATIONS: Continue dual antiplatelet therapy. Currently, not on statin at this time due to elevated CK and elevated LFTs. Metoprolol is being held due to hypotension. The patient will need ischemic evaluation given her oms-YT-aviiavqcn myocardial function, however, await improvement of her mental status and recovery from alcohol withdrawal to determine if she is a candidate for cardiac catheterization. Continue medical therapy for now. She denies symptoms. Thank you for this consult. We will continue to follow. Nena Limon MD ABS/MODL /[id number]
--- NOTE | 2019-12-19 12:47 | Progress Note ---
DATE: 12/19/2019 SUBJECTIVE: Ms. Yip is a 59-year-old female with history of alcohol abuse, liver cirrhosis, hypertension, and tobacco use who came to the emergency room because she states her back was hurting. CPK was very elevated. Troponin elevated. She was ruled in for a non-STEMI. She also developed alcohol withdrawal symptoms. PHYSICAL EXAMINATION: GENERAL: Today, she follows commands. She states she is very weak. She has not been able to walk by herself either. VITAL SIGNS: Temperature is 97.4, blood pressure 97/60. HEART: Regular rate. LUNGS: Poor respiratory effort. ABDOMEN: Distended and soft. LABORATORY DATA: White count is 5.69, hemoglobin is 9.1, hematocrit is 27.5. Potassium is 3.1, creatinine is 0.65. Abdominal ultrasound showed diffuse fatty liver without focal hepatic abnormality, cholelithiasis with no cholecystitis. Potassium is low at 3.1. ASSESSMENT: 1. Phe-FV-ncvtxzcgw myocardial infarction. 2. Alcoholic liver cirrhosis. 3. ETOH abuse. 4. Acute alcohol withdrawal. 5. Fatty liver. 6. Rhabdomyolysis, improving. 7. Chronic diastolic congestive heart failure. 8. Beer potomania. 9. Tobacco abuse. 10. Hypertension. PLAN: The patient at present time is hypotensive. She is only on beta-blockers. She is still kind of slow. We are going to decrease the Librium dose. Continue aspirin and Plavix. The patient is not on statins due to elevated liver enzymes. PT/OT to evaluate the patient today. The prognosis remains guarded. All this was discussed with the patient. All questions were answered to satisfaction. MD GERALD Bhandari/MODL /[id number]
--- NOTE | 2019-12-19 13:00 | NUR ---
patient ambulated with PT and is doing much better with her walker.
[2019-12-19] MEDS: SODIUM CHLORIDE 0.45% 1,000 ML IV SCH (13:50)
--- NOTE | 2019-12-19 19:20 | NUR ---
Patient received asleep in bed. Arousable to tactile stimuli. No signs of pain or respiratory distress. Fall precautions implemented. Call light within reach.
[2019-12-20] VITALS: BP 91/55
--- NOTE | 2019-12-20 01:00 | NUR ---
IV on right arm infiltrated. Old IV removed with tip intact. New IV inserted in left AC 20G. Patient tolerated well.
[2019-12-20] MEDS: SODIUM CHLORIDE 0.45% 1,000 ML IV SCH (03:10)
[2019-12-20 04:00] VITALS: BP 94/70
[2019-12-20 05:42] LABS: BASOPHILS # (AUTO) 0.1 (0.0-0.1); BASOPHILS % 0.8 % (0.0-1.0); EOSINOPHILS # (AUTO) 0.1 (0.0-0.4); EOSINOPHILS % 1.8 % (0.0-6.0); HEMATOCRIT 31.1 % (34.2-44.1); HEMOGLOBIN 9.7 g/dL (12.0-16.0); LYMPHOCYTES # (AUTO) 1.9 (1.0-3.2); LYMPHOCYTES % 31.9 % (18.0-39.1); MEAN CORPUSCULAR HEMOGLOBIN 28.4 pg (28-32); MEAN CORPUSCULAR HGB CONC 31.2 g/dL (31-35); MEAN CORPUSCULAR VOLUME 91.2 fL (81-99); MONOCYTES % 15.8 % (4.4-11.3); NEUTROPHILS # (AUTO) 2.7 (2.1-6.9); NEUTROPHILS % 44.6 % (38.7-80.0); PLATELET COUNT 212 x10e3/uL (140-360); RED BLOOD COUNT 3.41 x10e6/uL (3.6-5.1)
[2019-12-20 06:02] LABS: ANION GAP 11.8 mmol/L (8-16); BLOOD UREA NITROGEN 8 mg/dL (7-26); BUN/CREATININE RATIO 12 (6-25); CALCIUM 10.2 mg/dL (8.4-10.2); CARBON DIOXIDE 22 mmol/L (22-29); CHLORIDE 108 mmol/L (98-107); CREATININE, SERUM 0.66 mg/dL (0.57-1.11); EST GLOMERULAR FILTRATION RATE > 60 ML/MIN (60-); GLUCOSE 94 mg/dL (74-118); SODIUM 138 mmol/L (136-145)
[2019-12-20 06:03] LABS: POTASSIUM 3.8 mmol/L (3.5-5.1)
--- NOTE | 2019-12-20 07:00 | NUR ---
Walking rounds done. Bed-side report given to oncoming nurse regarding patient's status.
[2019-12-20 07:27] VITALS: BP 94/70
[2019-12-20] MEDS: METOPROLOL TARTRATE 25 MG TAB PO SCH ×2 (07:36→16:55)
[2019-12-20 08:00] VITALS: BP 102/68
[2019-12-20] MEDS: FOLIC ACID 1 MG TAB PO SCH (09:01)
[2019-12-20] MEDS: ASPIRIN 325 MG TAB EC PO SCH (09:01)
[2019-12-20] MEDS: CLOPIDOGREL BISULFATE 75 MG TAB PO SCH (09:01)
[2019-12-20] MEDS: THIAMINE HCL INJ 100 MG/ML 2ML VIAL IV SCH (09:01)
[2019-12-20] MEDS: CHLORDIAZEPOXIDE HCL 25 MG CAP PO SCH ×2 (09:01→17:14)
[2019-12-20] MEDS: NICOTINE 14 MG/EA PATCH TOP SCH (09:01)
[2019-12-20] MEDS: FAMOTIDINE 20 MG TAB PO SCH (09:01)
[2019-12-20 09:28] LABS: EOSINOPHILS % (MANUAL) 3 % (0-7); LYMPHOCYTES % (MANUAL) 44 % (19-48); MONOCYTES % (MANUAL) 10 % (3.4-9.0); NEUTROPHILS % (MANUAL) 43 % (40-74)
[2019-12-20 09:29] LABS: PLATELET ESTIMATE ADEQUATE; PLATELET MORPHOLOGY COMMENT NORMAL; RBC MORPHOLOGY COMMENT NORMAL
--- NOTE | 2019-12-20 11:32 | NUR ---
ORDERS FOR ROLLING WALKER REC'D FOR DISCHARGE HOME SPOKE WITH PT AND ENCOURAGED HER TO BUY A WALKER FROM [facility] SHE STATES NEITHER SHE NOR HER SON CAN AFFORD TO BUY ONE PROVIDED PT WITH RW FOR DISCHARGE FROM HOSPITAL
[2019-12-20 12:00] VITALS: BP 106/75
--- NOTE | 2019-12-20 15:35 | NUR ---
Nutrition Screen Note RD Recommendation for Physician: Continue current diet per MD. -Consider thiamine, M/, folic acid supplementation if medically feasible. Plan of Care: RD following, monitoring for tolerance and adequacy Nutrition reason for involvement: (LOS) Primary Diagnose(s): Hypokalemia PMH: alcohol abuse, liver cirrhosis, hypertension, and tobacco use Ht: 61 in Wt:145 lb BMI:27.4 kg/m2 IBW: [address] Assessment: (12/19) 59 YOF admitted for hypokalemia with PMH listed above. Pt reports an okay appetite, 50% of her breakfast was consumed. She denied N/V and stated she had diarrhea for the first couple of days but her diarrhea has resolved now. Pt reported no weight loss that she is aware of. Pr denied chewing or swallowing issues as well as any food allergies. Chart reviewed. Labs and meds reviewed. 25-50% of her meals consumed per meal assessment. Recommend Ensure Compact BID if has poor intake. Will continue to monitor. Current Diet: regular diet Malnutrition Evaluation (12/19) The patient does not meet criteria for a specified degree of malnutrition at this time. Will re-evaluate at follow-up as appropriate. Fat loss: Mild-eyes Muscle loss: Mild-temporal wasting Diet Education Needs Assessment: Diet education not indicated. Diet Adequacy: (Meeting calorie needs, Meeting protein needs) Nutrition Care Level: low Signed: Randee Kelley RD, LD
[2019-12-20 16:00] VITALS: BP 115/78
--- NOTE | 2019-12-20 17:23 | NUR ---
cardiology cleared patient for discharge. Dr. Davila paged for discharge orders.
--- NOTE | 2019-12-20 18:00 | NUR ---
Dr. Davila said okay to discharge patient. prescriptions already in chart. IV removed- dressing applied & bleeding controlled. Telemetry removed. Both patient and patient's son verbalized understanding of prescription medications and the importance of following up with cardiology. patient wheeled off unit to son's personal vehicle.
--- NOTE | 2019-12-20 20:04 | Progress Note ---
DATE: 12/20/2019 Cardiology Progress Note SUBJECTIVE: The patient denies chest pain or shortness of breath. OBJECTIVE: VITAL SIGNS: Temperature 97.6 degrees, pulse 57, respiratory rate 18, blood pressure 115/78, and oxygen saturation 96% on room air. GENERAL: Awake, alert, in no acute distress. LUNGS: Clear to auscultation bilaterally. No wheezes or crackles. CARDIOVASCULAR: Normal rate. Regular rhythm. No murmur. Normal S1 and S2. ABDOMEN: Soft and nontender. EXTREMITIES: No edema. CARDIAC MEDICATIONS: Aspirin 81 mg p.o. daily and Plavix 75 mg p.o. daily. LABORATORY DATA: WBC 6.09, hemoglobin 9.7, hematocrit 31.1, and platelets 212. Sodium 138, potassium 3.8, chloride 108, CO2 22, BUN 8, and creatinine 0.66. Telemetry was personally reviewed and interpreted, revealing normal sinus rhythm. IMPRESSION: 1. Elevated troponin. 2. Alcohol withdrawal. 3. Altered mental status. 4. Elevated LFTs. 5. Hypertension, currently hypotensive. 6. Hyponatremia. RECOMMENDATIONS: Continue dual antiplatelet therapy. Currently not on statin at this time due to elevated CK and elevated LFTs. Metoprolol cannot be administered due to hypotension. Given her risk factors, the patient does need ischemic evaluation, however, given her presentation with elevated CK and elevated troponin, suspect troponin elevation due to rhabdomyolysis rather than true [id number]-XA-[id number] myocardial infarction. Continue dual antiplatelet therapy. She will need cardiac catheterization as an outpatient when she is recovered from her alcohol withdrawal. Continue medical therapy for now, as family indicates she has not returned to baseline. Thank you for this consult. We will continue to follow. Nena Limon MD ABS/MODL /[id number]
--- NOTE | 2019-12-21 04:55 | Discharge Summary ---
HOSPITAL COURSE: Ms. Yip is a 59-year-old female with history of liver cirrhosis, hypertension, alcohol abuse, tobacco use, who came to the emergency room complaining of back pain. CPK was elevated. Troponin was also elevated. She ruled in for a non-STEMI, has some alcohol withdrawal symptoms. She was put on Librium. She has been seen by GI and Cardiology. She is probably will need angiogram in the near future. PHYSICAL EXAMINATION: GENERAL: Today, she is awake and alert. Nurses state she walked 200 feet. VITAL SIGNS: Temperature is 97.1, blood pressure 102/68. HEART: Regular rate. LUNGS: Poor respiratory effort. ABDOMEN: Soft. LABORATORY DATA: On the blood work, potassium is 3.8, sodium is 138, creatinine is 0.66, glucose is 94, and calcium is 10.2. White count 6.09, hemoglobin 9.7, and hematocrit 31.1. Platelets are 212. Hepatitis profile came back negative. Urine culture negative. DISCHARGE DIAGNOSES: 1. Non-STEMI. 2. Alcoholic liver cirrhosis. 3. EtOH abuse. 4. Acute alcohol withdrawal, resolving. 5. Fatty liver. 6. Rhabdomyolysis, resolving. 7. Chronic diastolic congestive heart failure. 8. Tobacco abuse. 9. History of hypertension. PLAN: At present time is to if the patient gets cleared by personal banking assistant and by GI is to discharge her home. Beta-blockers were stopped due to the patient's low blood pressure. She is to continue aspirin and Plavix as an outpatient. No statins due to elevated liver enzymes. If her blood pressure improves, she needs follow up with her PCP. If blood pressure improves, she should be started on low dose of beta blockers. She needs to follow up with personal banking assistant for further workup and probably angiogram. Please see home medication reconciliation list. The patient is going to be discharged home if it is okay with personal banking assistant and GI. She needs follow up with her PCP in one week and with consultants as directed. Please see home medication reconciliation list. MD GERALD Bhandari/LUÍSL /[id number]
== END 2019-12-20 18:25 | disposition home or self-care (01) | DRG 281 ==
LOC: ER 13:31 → ERHOLD 18:12 → IMCU 20:30 → MED/SURG 12-17 15:15 → MED/SURG2 12-18 18:03
PROVIDERS: ADMIT Internal Medicine; ATTEND Internal Medicine
DX: I21.4 Non-ST elevation (NSTEMI) myocardial infarction (principal); M62.82 Rhabdomyolysis; E87.1 Hypo-osmolality and hyponatremia; F10.230 Alcohol dependence with withdrawal, uncomplicated; F10.288 Alcohol dependence with other alcohol-induced disorder; N17.9 Acute kidney failure, unspecified; I50.32 Chronic diastolic (congestive) heart failure; N28.9 Disorder of kidney and ureter, unspecified; E87.6 Hypokalemia; R53.1 Weakness; K74.60 Unspecified cirrhosis of liver; K72.90 Hepatic failure, unspecified without coma; F17.210 Nicotine dependence, cigarettes, uncomplicated; E83.52 Hypercalcemia; E83.51 Hypocalcemia; K80.20 Calculus of gallbladder without cholecystitis without obstruction; D64.9 Anemia, unspecified; K70.0 Alcoholic fatty liver; I11.0 Hypertensive heart disease with heart failure
CPT/HCPCS: 36415; 70450; 71045; 76705; 80048; 80053; 80061; 80307; 80320; 80329; 81001; 82140; 82550; 82553; 83735; 83880; 83935; 83970; 84295; 84300; 84484; 84550; 85025; 85610; 85730; 87086; 93005; 93306; 97139; 99284; J1644; J2060; J2270; J3411; J3486; J7030; Q0162

== ENCOUNTER → 2019-12-14 | Outpatient (CLI) | payer SELFPAY ==
[2019-12-14 21:47] LABS: HIV 1&2 AB SCREEN NON-REACTIVE (NONREACTIVE)
== END ==
LOC: LAB 15:12
PROVIDERS: ATTEND Emergency Medicine
DX: Z11.4 Encounter for screening for human immunodeficiency virus [HIV] (principal)
CPT/HCPCS: 36415; 87390; G0433; G0435